=== PATIENT | female | born 1935 | race Caucasian/White ===

== ENCOUNTER → 2017-05-23 | Outpatient (CLI) | payer MEDICARE, BC ==
[2017-05-23 16:22] LABS: Basophils % (A) 1 %; CH 31.7; CHCM 34.1; Eosinophils # (A) 0.2 k/uL (0-0.7); Eosinophils % (A) 2 %; HCT 41.4 % (34.0-46.0); HDW 2.61; HGB 14.5 gm/dL (11.4-16.0); Luc % (Auto) 3; Lymphocytes % (A) 27 %; MCH 32.9 pg (25.0-35.0); MCHC 35.1 g/dL (31.0-37.0); MCV 93.5 fL (80.0-100.0); Mean Platelet Volume 6.7; Monocytes # (A) 0.5 k/uL (0-1.0); Monocytes % (A) 6 %; Neutrophils # (A) 4.5 k/uL (1.3-7.7); Neutrophils % (A) 62 %; RBC 4.42 m/uL (3.80-5.40); RDW 12.9 % (11.5-15.5); WBC 7.3 k/uL (3.8-10.6); WBC (Perox) 6.63
[2017-05-23 16:35] LABS: Potassium 4.5 mmol/L (3.5-5.1)
== END | disposition home or self-care (01) ==
LOC: LABWHC1 15:41
PROVIDERS: ATTEND Orthopaedic Surgery
DX: Z01.810 Encounter for preprocedural cardiovascular examination (principal); Z01.812 Encounter for preprocedural laboratory examination; M23.91 Unspecified internal derangement of right knee
CPT/HCPCS: 80051; 85025

== ENCOUNTER 2017-06-13 09:42 | Day surgery (SDC) | payer MEDICARE, BC ==
[2017-06-05 11:30] VITALS: BMI 27.3
--- NOTE | 2017-06-12 17:54 | HP ---
HISTORY AND PHYSICAL DATE OF SURGERY: 06/13/2017 Liv Peacock is an 82-year-old patient seen with progressive right knee pain. We discussed treatment options. She elected to proceed with right knee arthroscopy. Consent was obtained. PAST MEDICAL HISTORY: Osteoarthritis. PAST SURGICAL HISTORY: Total hip arthroplasty. DAILY MEDICATIONS: 1. Aspirin. 2. Calcium. 3. Vitamins. ALLERGIES: NONE. SOCIAL HISTORY: Patient denies current tobacco use. PHYSICAL EVALUATION OF THE RIGHT KNEE: Range of motion is -2/3 to 100 degrees. There is a mild effusion present. There is tenderness along the medial and lateral joint lines. There is a positive medial Michelle's. There is a positive lateral Michelle's. Ligaments are stable. Hip rotation is without pain. Distal neurovascular exam is intact. RADIOGRAPHS: Radiographs of the right knee revealed moderate osteoarthritic changes. An MRI of the right knee revealed medial and lateral meniscal tears as well as osteoarthritic changes. IMPRESSION: Internal derangement, right knee, with medial and lateral meniscal tears. PLAN: Right knee arthroscopy with partial medial and lateral meniscectomy as well as debridement. MMODL / IJN: [id number] /
[~2017-06-13 09:42] MED LIST: DEXAMETHASONE SOD PHOSPHATE 10 MG/ML 1 ML VIAL IV ONE; HYDROmorphone 1 MG/ML 1 ML SYRINGE IVP PRN; LACTATED RINGERS 1,000 ML IV SCH; LIDOCAINE 1% 20 ML VIAL (10MG/ML) FOR IV START INTRADERMA PRN; MIDAZOLAM 2 MG/2 ML VIAL IV PRN; ONDANSETRON 4 MG/2 ML VIAL IVP ONE; SCOPOLAMINE 1.5MG/72HR PATCH TRANSDERM ONE
[2017-06-13] MEDS ORDERED: fentaNYL (PF) 50 MCG/ML 2 ML AMP ONE (11:47)
[2017-06-13] MEDS ORDERED: LIDOCAINE 1% INJ 10MG/ML (20 ML MDV) ONE (11:47)
[2017-06-13] MEDS ORDERED: PROPOFOL 10 MG/ML 20 ML VIAL IV ONE (11:47)
[2017-06-13] MEDS ORDERED: MIDAZOLAM 2 MG/2 ML VIAL ONE (11:47)
[2017-06-13] MEDS: ceFAZolin 2 GM in SODIUM CHLORIDE 0.9% 100 ML IVPB ONE ×2 (11:51→12:04)
[2017-06-13] MEDS ORDERED: BUPIVACAINE (PF) 0.25% 30 ML VIAL SQ ONE (12:04)
[2017-06-13 13:00] VITALS: TEMP 97.6
--- NOTE | 2017-06-13 13:02 | P.OP ---
Date of Procedure: 06/13/17 Preoperative Diagnosis: Internal derangement right knee Postoperative Diagnosis: 1. Tear medial and lateral meniscus right knee 2. Grade 3/4 chondromalacia medial femoral condyle right knee 3. Grade 3/4 chondromalacia medial tibial plateau right knee 4. Grade 3 chondromalacia lateral femoral condyle right knee 5. Grade 3 chondromalacia patella right knee 6. Reactive synovitis medial and suprapatellar compartments right knee Procedure(s) Performed: 1. Arthroscopic partial medial and lateral meniscectomy right knee 2. Arthroscopic chondroplasty medial femoral condyle right 3. Arthroscopic chondroplasty lateral femoral condyle right knee 4. Arthroscopic chondroplasty patella right knee 5. Arthroscopic partial synovectomy medial and suprapatellar compartments right knee Implants: None Anesthesia: PRANEETH, local Surgeon: Alexandre Garcia Estimated Blood Loss (ml): 20 Pathology: none sent Condition: stable Disposition: PACU Indications for Procedure: 82-year-old patient seen with progressive right knee pain. After treatment options were discussed, she elected to proceed with arthroscopy. Operative Findings: See description of procedure Description of Procedure: Patient was taken to the operative suite. Patient underwent a general anesthetic by the department of anesthesia. Patient was given preoperative antibiotics. The right lower extremity was placed in a well-padded arthroscopic leg mensah. The right leg was prepped and draped in the normal sterile orthopedic fashion. A lateral parapatellar and suprapatellar incision was made. Trochars were inserted. Arthroscopy was initiated. Suprapatellar pouch revealed thick reactive synovitis. The patellofemoral joint appeared to articulate congruently. There was grade 3 chondromalacia of the patella with some osteochondral tears present. The scope was guided into the medial gutter. Loose bodies or plica identified. The scope was then guided into the medial compartment. A medial parapatellar incision was made. Trocar inserted followed by probe. There was a complex tear medial meniscus involving the posterior horn and midbody. There were grade 3 and 4 chondromalacia changes of both the medial femoral condyle and tibial plateau. The femoral condyle did have some osteochondral tears. There was reactive synovitis anteriorly. I performed a partial medial meniscectomy down to stable tissue. I performed a chondroplasty of the medial femoral condyle and partial synovectomy. The residual meniscus was stable. Scope and probe were then guided into the intercondylar notch. Cruciates were identified, probed and found to be somewhat thin but stable. The scope and probe were then guided into lateral compartment. Was a complex tear of the lateral meniscus involving the anterior horn, mid body and posterior horn. There were grade 3, changes lateral femoral condyle with some osteochondral tears present. I performed a partial lateral meniscectomy down to stable tissue. I performed a chondroplasty down to stable tissue of the lateral femoral condyle. The residual meniscus and osteochondral surface was stable. The scope was in guided back into the suprapatellar compartment. I introduced a motorized shaver into the super patellar compartment. I performed a chondroplasty of the patella down to stable tissue. I performed a partial synovectomy as well as debriding out some piecemeal fragments of meniscus I encountered. Shaver was removed. I took one more look on the entire knee, no residual debris. Instruments were now removed from the joint. The joint was infiltrated with .25% Marcaine. Steri-Strips were applied to the portal sites. Sterile dressings were applied. The patient was placed into a MONO hose. No tourniquet was utilized. The patient was awakened, transferred to a bed and taken to recovery stable satisfactory condition.
[2017-06-13 13:52] VITALS: RESP 16
[2017-06-13 14:31] VITALS: BP 145/72; PULSE 61
== END 2017-06-13 14:58 | disposition home or self-care (01) ==
LOC: OR 09:42
PROVIDERS: ATTEND Orthopaedic Surgery
DX: S83.271A Complex tear of lateral meniscus, current injury, right knee, initial encounter (principal); S83.231A Complex tear of medial meniscus, current injury, right knee, initial encounter; M65.9 Synovitis and tenosynovitis, unspecified; M22.41 Chondromalacia patellae, right knee; M17.11 Unilateral primary osteoarthritis, right knee; X58.XXXA Exposure to other specified factors, initial encounter; Z96.649 Presence of unspecified artificial hip joint; Z79.82 Long term (current) use of aspirin
CPT/HCPCS: 29880; J2250; J1100; J0690; J2405; J2001; J3010; J2704